=== PATIENT | female | born 1955 | race Caucasian/White ===

== ENCOUNTER 2018-02-25 12:25 | Emergency (ER) | payer MEDICAID ==
[~2018-02-25] VITALS: Ht 177.8 cm; Wt 69.4 kg
[2018-02-25 12:37] VITALS: BP_SYST 146
[2018-02-25] MEDS ORDERED: KETOROLAC TROMETHAMINE 60 MG/2 ML VIAL IM ONE (13:30)
[2018-02-25 14:22] VITALS: BP_SYST 135
== END 2018-02-25 14:22 | disposition home or self-care (01) ==
LOC: SED 12:25
DX: M79.661 Pain in right lower leg (principal); R03.0 Elevated blood-pressure reading, without diagnosis of hypertension; Z85.828 Personal history of other malignant neoplasm of skin; Z88.8 Allergy status to other drugs, medicaments and biological substances
CPT/HCPCS: 73590; 93971; 96372; 99284; J1885

== ENCOUNTER 2018-04-21 11:51 | Emergency (ER) | payer MEDICAID ==
[~2018-04-21] VITALS: Ht 177.8 cm; Wt 70.3 kg
[2018-04-21 12:01] VITALS: BP_SYST 134
== END 2018-04-21 12:50 | disposition home or self-care (01) ==
LOC: SED 11:51
DX: L98.8 Other specified disorders of the skin and subcutaneous tissue (principal); Z85.828 Personal history of other malignant neoplasm of skin; Z88.8 Allergy status to other drugs, medicaments and biological substances
CPT/HCPCS: 99282